=== PATIENT | female | born 1960 | race Caucasian/White ===

== ENCOUNTER → 2018-12-23 | Day surgery (SDC) | payer MEDICAID ==
[~2018-12-23] VITALS: Ht 157.5 cm; Wt 65.5 kg
[~2018-12-23] MED LIST: CIPR-278 PO; INSLAN SQ; LIDOCAINE/PF 2% 5 ML SYRINGE IVP ONE; PROP10TA73 PO; PROPOFOL 1% 20 ML VIAL IVP ONE; SODIUM CHLORIDE 0.9% 1,000 ML IV ONE
[2018-12-23 12:54] LABS: GLUCOMETER DEV NAME(LOC) SDS.; GLUCOSE,POINT OF CARE 139 MG/DL (70-110)
== END | disposition home or self-care (01) ==
LOC: SURGERY 11:48
PROVIDERS: ATTEND Internal Medicine Gastroenterology
DX: K64.8 Other hemorrhoids (principal); K62.89 Other specified diseases of anus and rectum; D64.9 Anemia, unspecified; K74.60 Unspecified cirrhosis of liver; E11.9 Type 2 diabetes mellitus without complications; Z98.51 Tubal ligation status; Z79.4 Long term (current) use of insulin; I10 Essential (primary) hypertension
CPT/HCPCS: 45378; 82962; J2704; J3490; J7030

== ENCOUNTER → 2019-01-06 | Day surgery (SDC) | payer MEDICAID ==
[~2019-01-06] VITALS: Ht 160 cm; Wt 65.9 kg
[~2019-01-06] MED LIST changes: -LIDOCAINE/PF 2% 5 ML SYRINGE IVP ONE; +LIDOCAINE/PF 2% 5 ML VIAL INJ ONE
[2019-01-06 11:38] LABS: GLUCOMETER DEV NAME(LOC) SDS.; GLUCOSE,POINT OF CARE 188 MG/DL (70-110)
== END | disposition home or self-care (01) ==
LOC: SURGERY 10:42
PROVIDERS: ATTEND Internal Medicine Gastroenterology
DX: I85.00 Esophageal varices without bleeding (principal); K29.50 Unspecified chronic gastritis without bleeding; E11.9 Type 2 diabetes mellitus without complications; K74.60 Unspecified cirrhosis of liver; K76.6 Portal hypertension; K31.89 Other diseases of stomach and duodenum; D64.9 Anemia, unspecified; Z98.51 Tubal ligation status; Z79.4 Long term (current) use of insulin; Z79.899 Other long term (current) drug therapy; Z98.890 Other specified postprocedural states
CPT/HCPCS: 43239; 82962; 88305; 88312; 88313; C1769; J2704; J3490; J7030